=== PATIENT | male | born 1975 | race Caucasian/White ===

== ENCOUNTER 2024-07-07 09:44 | Emergency (ER) | payer OTHER, SELFPAY ==
[2024-07-07 09:47] VITALS: BP 139/89; BMI 24.2
[2024-07-07 10:00] VITALS: BP 116/72
[2024-07-07] MEDS: TORADOL 15 MG IM (10:17)
--- NOTE | 2024-07-07 10:19 | ED.GENMED ---
History of Present Illness
<Claudia Carranza PA-C - Last Filed: 07/07/24 21:30>
General
Chief Complaint: Abdominal Pain
Source: patient
Exam Limitations: none
Time Seen by Provider: 07/07/24 09:49
Nursing documentation reviewed up to this point in time: agreed with
History of Present Illness
History of Present Illness:
49-year-old male presenting with scrotal pain over the past 4 days. Patient states he initially noticed pain Thursday evening and states it has been progressively worsening since. Pain is worse with standing. Patient reports a constant, stabbing
pain in his left groin. He notes that his left testicle is red and swollen. Patient denies any associated fever, chills, abdominal pain, or vomiting. Patient denies any dysuria, urinary frequency. No history of STIs/STDs.
Patient is concerned that he may have a hernia.
Review of Systems
<Claudia Carranza PA-C - Last Filed: 07/07/24 21:30>
Review of Systems
Allergies reviewed?: Yes
All Other Systems: ROS reviewed and negative except as documented in HPI and ROS
Phy Exam
<Claudia Carranza PA-C - Last Filed: 07/07/24 21:30>
Physical Exam
Physical Exam:
Vitals: Mildly hypertensive, otherwise vital signs stable. Afebrile
General: Patient is well appearing, no acute distress. Nontoxic appearing
Skin: Warm and dry, no rashes or lesions
Head: Normocephalic, atraumatic
Eyes: Sclera nonicteric. EOMs intact. No nystagmus.
Throat: Protecting airway
Neck: Normal ROM, no cervical spine tenderness, no meningismus
Cardiac: Regular rate and rhythm, no murmurs.
Pulm: Normal respiratory effort, no wheezes, rales, rhonchi heard on exam.
Abdomen: Abdomen soft. No abdominal tenderness. No palpable mass.
: Left scrotal edema and tenderness with overlying erythema. No palpable mass or hernia.
Extremities: No evidence of cyanosis or edema
Neuro: AAOx3. Grossly intact.
Psychiatric: Normal affect.
Course
<Claudia Carranza PA-C - Last Filed: 07/07/24 21:30>
Orders/Labs/Results
Orders:
Orders
07/07/24 10:10
Scrotum US [US Scrotum] Urgent
Comment:
Reason For Exam: left testicular pain and swelling
07/07/24 10:11
Ketorolac [Toradol] 15 mg IM NOW STA
07/07/24 13:08
Ceftriaxone Sodium [Rocephin] 500 mg IM NOW STA
Doxycycline [Vibramycin] 100 mg PO NOW STA
07/07/24 13:09
Urinalysis Reflex To Culture Urgent
Date Specimen was Collected: 07/07/24
Time Specimen was Collected: 10:15
Urine Microscopic Reflex Cult Urgent
Chlamydia/GC by PCR Urgent
LUIS ANTONIO Source: Urine
Specimen Description:
Source:: URINE
Date Specimen was Collected: 07/07/24
Time Specimen was Collected: 10:15
Urine Culture Urgent
LUIS ANTONIO Source: U
Specimen Description:
Date Specimen was Collected: 07/07/24
Time Specimen was Collected: 10:15
Abnormal Lab Results
07/07/24
13:09
Leukocyte Esterase Rfl 1+ A
(Negative)
Urine Bacteria (Reflex) Few A
(Negative)
Vital Signs
Initial and Last Documented VS:
Initial Vital Signs
Temp Pulse Resp BP Pulse Ox
99.0 F 88 18 139/89 98
07/07/24 09:47 07/07/24 09:47 07/07/24 09:47 07/07/24 09:47 07/07/24 09:47
Last Documented Vital Signs
Temp Pulse Resp BP Pulse Ox
99.0 F 88 18 117/80 98
07/07/24 09:47 07/07/24 09:47 07/07/24 09:47 07/07/24 14:00 07/07/24 14:00
<Jolene Gifford MD - Last Filed: 07/07/24 13:08>
Orders/Labs/Results
Orders:
Orders
07/07/24 10:10
Scrotum US [US Scrotum] Urgent
Comment:
Reason For Exam: left testicular pain and swelling
07/07/24 10:11
Ketorolac [Toradol] 15 mg IM NOW STA
07/07/24 13:08
Ceftriaxone Sodium [Rocephin] 500 mg IM NOW STA
Doxycycline [Vibramycin] 100 mg PO NOW STA
07/07/24 13:09
Urinalysis Reflex To Culture Urgent
Date Specimen was Collected: 07/07/24
Time Specimen was Collected: 10:15
Urine Microscopic Reflex Cult Urgent
Chlamydia/GC by PCR Urgent
LUIS ANTONIO Source: Urine
Specimen Description:
Source:: URINE
Date Specimen was Collected: 07/07/24
Time Specimen was Collected: 10:15
Urine Culture Urgent
LUIS ANTONIO Source: U
Specimen Description:
Date Specimen was Collected: 07/07/24
Time Specimen was Collected: 10:15
Abnormal Lab Results
07/07/24
13:09
Leukocyte Esterase Rfl 1+ A
(Negative)
Urine Bacteria (Reflex) Few A
(Negative)
Vital Signs
Initial and Last Documented VS:
Initial Vital Signs
Temp Pulse Resp BP Pulse Ox
99.0 F 88 18 139/89 98
07/07/24 09:47 07/07/24 09:47 07/07/24 09:47 07/07/24 09:47 07/07/24 09:47
Last Documented Vital Signs
Temp Pulse Resp BP Pulse Ox
99.0 F 88 18 117/80 98
07/07/24 09:47 07/07/24 09:47 07/07/24 09:47 07/07/24 14:00 07/07/24 14:00
<Claudia Carranza PA-C - Last Filed: 07/07/24 21:30>
MDM/Problems Addressed
Differential Diagnosis Includes:
Not limited to: Orchitis, epididymitis, strangulated inguinal hernia, testicular torsion, etc.
MDM/Problems Addressed:
49 year old male with left scrotal swelling and pain for the past 4 days. No fevers, vomiting, or dysuria. Patient has stable vital signs he is afebrile. On exam patient is overall very well appearing, in no distress and nontoxic. He does have
significant left scrotal tenderness and edema with mild overlying erythema. No palpable masses or hernia. Given gradual onset - higher suspicion for infectious process including epididymitis, orchitis, or cellulitis. No palpable hernia. Will check
scrotal US to r/o torsion and UA + GC/Chlamydia. Toradol for pain
Update: US report reviewed by me. No evidence of testicular torsion. Findings consistent with epididymoorchitis w/ mild overlying cellulitis. Patient nontoxic appearing. Will give IM rocpehin + doxycycline to cover for UTI, gonorrhea/chlamydia, and
cellulitis. Strict return precautions provided. Patient stable for discharge back to alf. Seen w/ attending physician.
Chronic conditions affecting care:
N/A
Acute Exacerbation and/or Progression of Chronic Illness:
N/A
<Claudia Carranza PA-C - Last Filed: 07/07/24 21:30>
*Radiology
Radiology exam reviewed: radiology read reviewed
*Pulse Oximetry
Patient hypoxic: no
*EKG
Interpreted by ED Provider?: NA
*Liquid Center Assembler Interpretation
Rate: Liquid Center Assembler- N/A
*Critical Care Note
Total Time (30-74mins, 75-104mins- exclusive of procedures): Not Applicable
ED Attending Note
<Claudia Carranza PA-C - Last Filed: 07/07/24 21:30>
-
Portions of this chart may have been created with voice recognition software.� Occasional wrong word or��sound alike� substitutions may have occurred due to the inherent limitations of voice recognition software.
<Jolene Gifford MD - Last Filed: 07/07/24 13:08>
ED Attending Note
Patient seen and examined by attending physician: Yes
I performed the substantive portion of visit, reviewed & personally made and approve the management plan that is documented in note by myself or RAI.: Yes
ED Attending Note:
Patient appears well nontoxic. Belly is soft. Patient will be treated with IM Rocephin and p.o. doxycycline for epididymitis and orchitis. This will cover a cellulitis, typical UTI, and chlamydia and gonorrhea. Patient is breathing comfortably.
Ultrasound report reviewed by me
Discharge Plan
Departure
Patient Disposition: Residential
Date of Disposition: 07/07/24
Time of Disposition: 13:59
Patient with high blood pressure during this ER visit?: No
Condition: Good
Covid-19: Not Applicable
Discharge Problem:
Acute epididymo-orchitis
Instructions: Epididymitis and Orchitis
Prescriptions:
New
doxycycline hyclate 100 mg capsule
100 mg PO BID 10 Days Qty: 20 0RF
Referrals:
[facility],Facility [Family Provider] -
Activity Restrictions/Additional Instructions:
RETURN TO THE EMERGENCY DEPARTMENT WITH ANY FEVERS, PERSISTENT/WORSENING TESTICULAR PAIN, SEVERE REDNESS/SWELLING, SEVERE ABDOMINAL PAIN, INTRACTABLE NAUSEA/VOMITING, OR ANY OTHER CONCERNS
-As discussed�we suspect that you have an infection of your testicle. This was noted on ultrasound, as well.
-You were given a shot of antibiotics. You will also need to take doxycycline twice a day for the next 10 days. You were given your first dose in the emergency department.
-You should take tylenol and/or motrin as needed for pain
-Follow-up with primary care for further evaluation/management to ensure that symptoms are improving
Monitor your symptoms closely and return to the emergency department any acute worsening/new symptoms or signs of worsening infection
PATIENT MEDICALLY CLEARED FOR INCARCERATION
Interventions
Interventions:
*Risk Screen - Suicide Last Done: 07/07/24 09:47
*General Assessment Last Done: 07/07/24 09:47
*Neglect/Abuse Screening Last Done: 07/07/24 09:47
ED- Fall Risk Assessment Last Done: 07/07/24 09:47
*ED COVID-19 Vaccine History Last Done: 07/07/24 09:47
*Nursing Disposition Last Done: 07/07/24 14:11
KZ-Olgbjl-Pndezfrzbd Assessment Last Done: 07/07/24 09:47
Discharge Date and Time
Discharge Date/Time: 07/07/24 14:12
Print Language: TRISTANIAN
[2024-07-07 11:00] VITALS: BP 113/72
[2024-07-07 12:20] VITALS: BP 107/63
[2024-07-07 13:00] VITALS: BP 112/68
[2024-07-07] MEDS: VIBRAMYCIN 100 MG PO (13:22)
[2024-07-07] MEDS: ROCEPHIN 500 MG IM (13:22)
[2024-07-07 13:30] LABS: Urine Albumin Negative (Neg - Trace); Urine Bilirubin Negative (Negative); Urine Character Clear (Clear); Urine Color Yellow; Urine Glucose Negative (Negative); Urine Ketone Negative (Negative); Urine Leukocyte 1+ (Negative); Urine Nitrite Negative (Negative); Urine Occult Blood Negative (Negative); Urine Specific Gravity 1.015 (<1.030); Urine Urobilinogen Negative (Neg - 1+)
[2024-07-07 13:46] LABS: Urine Bacteria Few (Negative); Urine Red Blood Cell 0-2 /HPF (0-2); Urine Urothelial Cell 0-2 /LPF (FEW)
[2024-07-07 14:00] VITALS: BP 117/80
== END 2024-07-07 14:12 ==
LOC: EMR 09:44
PROVIDERS: Physician Assistant; EMERGENCY PHYSICIAN Emergency Medicine
DX: N45.3 Epididymo-orchitis (principal); R60.0 Localized edema; N50.89 Other specified disorders of the male genital organs; N50.812 Left testicular pain; F41.9 Anxiety disorder, unspecified
CPT/HCPCS: 99284; 96372 ×2; 76870; 81003; 81015; 87086; 87491; 87591; 93976